=== PATIENT | female | born 1980 | race Caucasian/White ===

== ENCOUNTER → 2018-03-19 | Outpatient (CLI) | payer BC | LOC: LAB 15:49 | PROVIDERS: ATTEND Family Medicine | DX: B99.9 Unspecified infectious disease (principal) | CPT/HCPCS: 86592 ==

== ENCOUNTER → 2020-08-27 | Outpatient (CLI) | payer SELFPAY ==
[2020-08-27 07:19] LABS: BASOPHILS % 0.6 % (0.0-1.0); EOSINOPHILS % 0.6 % (0.0-6.0); HEMATOCRIT 40.8 % (34.2-44.1); HEMOGLOBIN 13.7 g/dL (12.0-16.0); LYMPHOCYTES % 30.2 % (18.0-39.1); MEAN CORPUSCULAR HEMOGLOBIN 29.9 pg (28-32); MEAN CORPUSCULAR HGB CONC 33.6 g/dL (31-35); MEAN CORPUSCULAR VOLUME 89.1 fL (81-99); MONOCYTES # (AUTO) 0.6 (0.2-0.8); MONOCYTES % 8.4 % (4.4-11.3); NEUTROPHILS % 59.9 % (38.7-80.0); PLATELET COUNT 279 x10e3/uL (140-360); RED BLOOD COUNT 4.58 x10e6/uL (3.6-5.1); RED CELL DISTRIBUTION WIDTH 12.2 % (11.7-14.4)
[2020-08-27 07:55] LABS: ALANINE AMINOTRANSFERASE 15 IU/L (0-55); ALBUMIN 4.3 g/dL (3.5-5.0); ALBUMIN/GLOBULIN RATIO 1.2 (0.8-2.0); ALKALINE PHOSPHATASE 50 IU/L (40-150); ANION GAP 14.4 mmol/L (8-16); BLOOD UREA NITROGEN 14 mg/dL (7-26); BUN/CREATININE RATIO 18 (6-25); CALCIUM 8.9 mg/dL (8.4-10.2); CARBON DIOXIDE 24 mmol/L (22-29); CHLORIDE 105 mmol/L (98-107); CHOL/HDL RATIO 3.1 (3.0-3.6); CHOLESTEROL 178 MD/DL (0-199); CREATININE, SERUM 0.78 mg/dL (0.57-1.11); EST GLOMERULAR FILTRATION RATE > 60 ML/MIN (60-); GLUCOSE 104 mg/dL (74-118); HDL CHOLESTEROL 57 MG/DL (40-60); LDL CHOLESTEROL 94 MG/DL (60-130); POTASSIUM 4.4 mmol/L (3.5-5.1); SODIUM 139 mmol/L (136-145); THYROID STIMULATING HORMONE 1.253 uIU/mL (0.350-4.940); TRIGLYCERIDES 136 MG/DL (0-149)
== END ==
LOC: LAB 06:44
PROVIDERS: ATTEND Family Medicine
DX: Z00.00 Encounter for general adult medical examination without abnormal findings (principal); F32.9 Major depressive disorder, single episode, unspecified
CPT/HCPCS: 36415; 80053; 80061; 83036; 84436; 84443; 84480; 85025

== ENCOUNTER 2020-11-04 07:13 | Emergency (ER) | payer BC, OTHER ==
[~2020-11-04] VITALS: Ht 167.6 cm; Wt 54.4 kg
[2020-11-04] MEDS ORDERED: SODIUM CHLORIDE 0.9% 1000ML 1,000 ML IV STA (07:24)
[2020-11-04] MEDS ORDERED: ADENOSINE 6 MG/2 ML VIAL IV ONE ×2 (07:30)
[2020-11-04 07:36] LABS: BASOPHILS # (AUTO) 0.1 (0.0-0.1); BASOPHILS % 0.6 % (0.0-1.0); EOSINOPHILS % 0.4 % (0.0-6.0); HEMATOCRIT 42.1 % (34.2-44.1); HEMOGLOBIN 14.1 g/dL (12.0-16.0); LYMPHOCYTES # (AUTO) 3.3 (1.0-3.2); LYMPHOCYTES % 38.2 % (18.0-39.1); MEAN CORPUSCULAR HEMOGLOBIN 29.4 pg (28-32); MEAN CORPUSCULAR HGB CONC 33.5 g/dL (31-35); MEAN CORPUSCULAR VOLUME 87.9 fL (81-99); MONOCYTES # (AUTO) 0.9 (0.2-0.8); MONOCYTES % 10.6 % (4.4-11.3); NEUTROPHILS # (AUTO) 4.3 (2.1-6.9); PLATELET COUNT 324 x10e3/uL (140-360); RED BLOOD COUNT 4.79 x10e6/uL (3.6-5.1); RED CELL DISTRIBUTION WIDTH 13.4 % (11.7-14.4)
[2020-11-04 07:50] LABS: ALANINE AMINOTRANSFERASE 13 IU/L (0-55); ALBUMIN 4.5 g/dL (3.5-5.0); ALBUMIN/GLOBULIN RATIO 1.2 (0.8-2.0); ALKALINE PHOSPHATASE 54 IU/L (40-150); ANION GAP 16.1 mmol/L (8-16); BLOOD UREA NITROGEN 11 mg/dL (7-26); BUN/CREATININE RATIO 13 (6-25); CALCIUM 9.2 mg/dL (8.4-10.2); CARBON DIOXIDE 23 mmol/L (22-29); CHLORIDE 104 mmol/L (98-107); CREATINE KINASE 76 IU/L (29-168); CREATININE, SERUM 0.86 mg/dL (0.57-1.11); EST GLOMERULAR FILTRATION RATE > 60 ML/MIN (60-); GLUCOSE 106 mg/dL (74-118); POTASSIUM 4.1 mmol/L (3.5-5.1); SODIUM 139 mmol/L (136-145)
[2020-11-04 08:09] LABS: THYROID STIMULATING HORMONE 1.503 uIU/mL (0.350-4.940)
[2020-11-04] MEDS ORDERED: DILTIAZEM HCL ER 120 MG CAP PO STA (08:31)
[2020-11-04] MEDS ORDERED: DILTIAZEM HCL ER 120 MG CAP PO ONE (08:58)
[2020-11-04 09:26] VITALS: BP 110/80
== END 2020-11-04 09:27 | disposition home or self-care (01) ==
LOC: ER 07:37
DX: R00.2 Palpitations (principal); R42 Dizziness and giddiness; I47.1 Supraventricular tachycardia; R94.31 Abnormal electrocardiogram [ECG] [EKG]; J45.909 Unspecified asthma, uncomplicated
CPT/HCPCS: 36415; 71045; 80053; 82550; 82553; 83735; 83880; 84443; 84484; 84702; 85025; 85379; 99284

== ENCOUNTER → 2021-06-07 | Outpatient (CLI) | payer OTHER ==
[~2021-06-07] MED LIST: COVID-19 VACC, MRNA(MODERNA)/PF 100 MCG/0.5 ML VIAL IM ONE
== END ==
LOC: VACCPMC 16:36
DX: Z23 Encounter for immunization (principal); Z20.822 Contact with and (suspected) exposure to COVID-19
CPT/HCPCS: 91301

== ENCOUNTER → 2024-12-29 | Outpatient (REF) | payer BC ==
[~2024-12-29] MED LIST changes: -COVID-19 VACC, MRNA(MODERNA)/PF 100 MCG/0.5 ML VIAL IM ONE; +IOPAMIDOL 370 MG/ML 100 ML INFUS..BTL INJ ONE; +SODIUM CHLORIDE 0.9% 250ML 250 ML ONE
== END ==
LOC: CT 06:04
PROVIDERS: ATTEND Urology
DX: N20.0 Calculus of kidney (principal)
CPT/HCPCS: 74178; J7050; Q9967

== ENCOUNTER 2025-01-31 07:15 | Inpatient (IN) | payer BC ==
[2025-01-28 09:46] LABS: BASOPHILS % 0.3 % (0.0-1.0); EOSINOPHILS % 0.7 % (0.0-6.0); LYMPHOCYTES % 33.3 % (18.0-39.1); MONOCYTES % 7.8 % (4.4-11.3); NEUTROPHILS % 57.7 % (38.7-80.0); RED CELL DISTRIBUTION WIDTH 15.6 % (11.7-14.4)
[~2025-01-31] VITALS: Ht 172.7 cm; Wt 57.7 kg
[2025-01-31] VITALS (8 sets, daily range): BP systolic 112–161; BP diastolic 80–88; PULSE 70–89; RESP 17–19; TEMP 97.5–99.5; O2SAT 100
[~2025-01-31 07:15] MED LIST changes: +ATOMOXETINE HCL40 MG PO; +AZITHROMYCIN250 MG PO; +BEEF LIVER; +FEROSUL325 MG PO; -IOPAMIDOL 370 MG/ML 100 ML INFUS..BTL INJ ONE; +NURTEC ODT75 MG PO; +ONDANSETRON ODT4 MG PO; -SODIUM CHLORIDE 0.9% 250ML 250 ML ONE
[2025-01-31] MEDS: LACTATED RINGER'S 1,000 ML ONE (08:10)
[2025-01-31] MEDS ORDERED: FENTANYL CITRATE/PF 100MCG/2 ML INJ ONE (09:13)
[2025-01-31] MEDS ORDERED: MIDAZOLAM HCL 2 MG/2 ML VIAL ONE (09:13)
[2025-01-31] MEDS ORDERED: LIDOCAINE HCL 2% LOCAL INJ 5 ML SDV VIAL INJ ONE (09:13)
[2025-01-31] MEDS ORDERED: PROPOFOL IV EMULSION 10 MG/ML 20 ML VIAL ONE (09:13)
[2025-01-31] MEDS ORDERED: ROCURONIUM BROMIDE 1 ML IV ONE ×2 (09:14→10:03)
[2025-01-31] MEDS ORDERED: HYDROMORPHONE 2MG/ML ONE (09:54)
[2025-01-31] MEDS ORDERED: ONDANSETRON HCL INJ 2MG/ML 2ML 2 MG/ML VIAL ONE (09:58)
[2025-01-31] MEDS ORDERED: DEXAMETHASONE SOD PHOS INJ 4 MG/ML SDV ONE (09:58)
[2025-01-31] MEDS ORDERED: FAMOTIDINE 20 MG/2 ML VIAL IV ONE (09:58)
[2025-01-31] MEDS ORDERED: ACETAMINOPHEN 1000 MG/100 ML 100 ML IV ONE (10:05)
[2025-01-31] MEDS ORDERED: PHENYLEPHRINE HCL 1% 10 MG/ML VIAL ONE (10:11)
[2025-01-31] MEDS ORDERED: KETOROLAC TROMETHAMINE 30 MG/ML VIAL ONE (10:17)
[2025-01-31] MEDS ORDERED: KETAMINE HCL INJ 50 MG/ML 10 ML VIAL ONE (10:20)
[2025-01-31] MEDS ORDERED: GLYCOPYRROLATE INJ 0.2 MG/ML VIAL ONE (11:25)
[2025-01-31] MEDS ORDERED: NEOSTIGMINE 1 MG/ML 10ML VIAL ONE (11:25)
[2025-01-31] MEDS ORDERED: SUGAMMADEX SODIUM 200 MG/2 ML VIAL IV ONE (12:02)
[2025-01-31] MEDS ORDERED: DIPHENHYDRAMINE HCL 25 MG CAP PO PRN (12:30)
[2025-01-31] MEDS ORDERED: NALOXONE HCL INJ 0.4 MG/ML AMP IV PRN (12:30)
[2025-01-31] MEDS ORDERED: BISACODYL 10 MG SUPP PR PRN (12:30)
[2025-01-31] MEDS ORDERED: ONDANSETRON HCL INJ 2MG/ML 2ML 2 MG/ML VIAL IV PRN (12:30)
[2025-01-31] MEDS: FENTANYL CITRATE/PF 100MCG/2 ML INJ ONE (12:40)
[2025-01-31] MEDS: ONDANSETRON HCL INJ 2MG/ML 2ML 2 MG/ML VIAL IV PRN (12:40)
[2025-01-31] MEDS: KETOROLAC TROMETHAMINE 30 MG/ML VIAL IV PRN (12:42)
[2025-01-31] MEDS: MEPERIDINE HCL INJ 25 MG/ML VIAL ONE (12:58)
[2025-01-31] MEDS: HYDROMORPHONE 0.2MG/ML-SOD CHL 30ML PCA SYRINGE IV PRN (13:00)
[2025-01-31] MEDS: DEXTROSE 5%/LACTATED RINGERS 1,000 ML IV SCH (13:00)
[2025-01-31] MEDS: HYDROMORPHONE 0.2MG/ML-SOD CHL 30ML PCA SYRINGE IV ONE (14:42)
[2025-01-31] MEDS: DEXTROSE 5%/LACTATED RINGERS 1,000 ML IV ONE (14:42)
[2025-01-31] MEDS: KETOROLAC TROMETHAMINE 30 MG/ML VIAL ONE (14:55)
[2025-01-31] MEDS: BUPIVACAINE LIPOSOME/PF 266 MG/20 ML IJ ONE (14:56)
[2025-01-31] MEDS: Cefoxitin 2 G in SODIUM CHLORIDE 0.9% 100 ML IV SCH (17:15)
[2025-01-31] MEDS ORDERED: ZOLPIDEM TARTRATE 5 MG TAB PO PRN (21:00)
[2025-01-31] MEDS: DIPHENHYDRAMINE HCL INJ 50 MG/ML VIAL IM PRN (23:53)
[2025-02-01 05:33] LABS: BASOPHILS % 0.2 % (0.0-1.0); EOSINOPHILS % 0.1 % (0.0-6.0); LYMPHOCYTES % 23.9 % (18.0-39.1); MONOCYTES % 9.9 % (4.4-11.3); NEUTROPHILS % 65.6 % (38.7-80.0); RED CELL DISTRIBUTION WIDTH 15.5 % (11.7-14.4)
[2025-02-01 06:08] LABS: EST GLOMERULAR FILTRATION RATE 111.0 ML/MIN (>=60)
[2025-02-01 07:19] VITALS: PULSE 74; RESP 20; O2SAT 100
[2025-02-01 07:20] VITALS: BP 121/78; PULSE 74; RESP 18; TEMP 98.9; O2SAT 100
[2025-02-01 12:00] VITALS: BP 105/68; PULSE 94; RESP 19; TEMP 98.2; O2SAT 100
[2025-02-01] MEDS: DOCUSATE SODIUM 100 MG CAP PO PRN (12:38)
[2025-02-01] MEDS: IBUPROFEN 400 MG TAB PO SCH (12:38)
[2025-02-01 16:00] VITALS: BP 97/61; PULSE 103; RESP 17; TEMP 98.5; O2SAT 100
[2025-02-01] MEDS: DOCUSATE SODIUM 100 MG CAP PO SCH (16:12)
[2025-02-01] MEDS: HYDROCODONE/APAP 7.5MG-325MG 1 EA TAB PO PRN (16:13)
[2025-02-01 19:28] VITALS: PULSE 80; RESP 20; O2SAT 96
[2025-02-01 20:49] VITALS: BP 119/76; PULSE 77; RESP 18; TEMP 98.8; O2SAT 100
[2025-02-02 01:21] VITALS: BP 119/76; PULSE 77; RESP 18; TEMP 98.8; O2SAT 100
[2025-02-02 08:16] VITALS: BP 116/82; PULSE 82; RESP 18; TEMP 98.3; O2SAT 100
[2025-02-02] MEDS ORDERED: BISACODYL 10 MG SUPP PR PRN (11:00)
[2025-02-02] MEDS ORDERED: KETOROLAC TROMETHAMINE 30 MG/ML VIAL IV PRN (11:00)
[2025-02-02 11:30] VITALS: BP 107/65; PULSE 96; RESP 18; TEMP 98.1; O2SAT 97
[2025-02-02] MEDS: POTASSIUM CHLORIDE 20 MEQ TAB CR PO STA (11:45)
[2025-02-02 16:21] VITALS: BP 126/82; PULSE 87; RESP 18; TEMP 98.3; O2SAT 99
== END 2025-02-02 19:45 | disposition home or self-care (01) | DRG 743 ==
LOC: OR 07:15 → PACU V 12:45 → MED/SURG2 14:28
PROVIDERS: ADMIT Specialist; ATTEND Specialist
PROC: 0UT70ZZ Resection of Bilateral Fallopian Tubes, Open Approach (ICD-10-PCS; 2025-01-31)
PROC: 0UT20ZZ Resection of Bilateral Ovaries, Open Approach (ICD-10-PCS; 2025-01-31)
PROC: 0UT90ZZ Resection of Uterus, Open Approach (ICD-10-PCS; principal; 2025-01-31 09:43)
DX: D25.0 Submucous leiomyoma of uterus (principal); N83.201 Unspecified ovarian cyst, right side; Z87.440 Personal history of urinary (tract) infections
CPT/HCPCS: 36415; 71046; 80048; 81025; 85025; 86850; 86900; 88307; 93005; 94799; J0666; J0694; J1100; J1171; J1200; J1308; J1885; J2003; J2175; J2250; J2371; J2405; J2710; J7050